=== PATIENT | male | born 1935 | race Caucasian/White ===

== ENCOUNTER 2017-03-19 20:07 | Emergency (ER) | payer MEDICARE ==
[2017-03-19] MEDS ORDERED: IPRATROPIUM/ALBUTEROL 0.5-2.5 MG/3 ML AMPUL NEB ONE ×2 (20:50→21:59)
--- NOTE | 2017-03-19 21:00 | RADIOLOGY REPORT (SQ) ---
EXAM DESCRIPTION: CHEST SINGLE VIEW COMPLETED DATE/TIME: 03/19/2017 8:53 pm REASON FOR STUDY: difficulty breathing COMPARISON: None. EXAM PARAMETERS: NUMBER OF VIEWS: One view. TECHNIQUE: Single frontal radiographic view of the chest acquired. RADIATION DOSE: NA LIMITATIONS: None. FINDINGS: LUNGS AND PLEURA: No opacities, masses or pneumothorax. No pleural effusion. MEDIASTINUM AND HILAR STRUCTURES: No masses. Contour normal. HEART AND VASCULAR STRUCTURES: Heart normal in size. Normal vasculature. BONES: No acute findings. HARDWARE: None in the chest. OTHER: No other significant finding. IMPRESSION: NO ACUTE RADIOGRAPHIC FINDING IN THE CHEST. TECHNICAL DOCUMENTATION: JOB ID: [id number] [employer]- All Rights Reserved
[2017-03-19 21:23] LABS: ABSOLUTE EOSINOPHILS # (AUTO) 0.1 10^3/uL (0.0-0.6); ABSOLUTE LYMPHOCYTES (AUTO) 1.7 10^3/uL (0.5-4.7); ABSOLUTE MONOCYTES (AUTO) 0.2 10^3/uL (0.1-1.4); ABSOLUTE NEUT (AUTO) 3.6 10^3/uL (1.7-8.2); BASOPHILS % (AUTO) 0.5 % (0-2); EOSINOPHILS % (AUTO) 1.5 % (0-6); HEMATOCRIT 37.1 % (37.9-51.0); HGB HCT DIFFERENCE 1.9; LYMPHOCYTES % (AUTO) 30.9 % (13-45); MEAN CORPUSCULAR HEMOGLOBIN 32.6 pg (27.0-33.4); MEAN CORPUSCULAR VOLUME 93 fl (80-97); MONOCYTES % (AUTO) 3.1 % (3-13); RED BLOOD COUNT 3.99 10^6/uL (4.35-5.55); RED CELL DISTRIBUTION WIDTH 14.3 % (11.5-14.0); WHITE BLOOD COUNT 5.7 10^3/uL (4.0-10.5)
[2017-03-19 21:36] LABS: ALANINE AMINOTRANSFERASE 58 U/L (21-72); ALBUMIN 4.3 g/dL (3.5-5.0); ALKALINE PHOSPHATASE 69 U/L (38-126); ANION GAP 15 (5-19); ASPARTATE AMINO TRANSFERASE 54 U/L (17-59); BILIRUBIN,DIRECT 0.4 mg/dL (0.0-0.4); BILIRUBIN,TOTAL 0.6 mg/dL (0.2-1.3); BLOOD UREA NITROGEN 20 mg/dL (7-20); CALCIUM 9.4 mg/dL (8.4-10.2); CARBON DIOXIDE 26 mmol/L (22-30); CHLORIDE 100 mmol/L (98-107); CREATININE RESULT 0.78 mg/dL (0.52-1.25); GLUCOSE 101 mg/dL (75-110); SODIUM 140.9 mmol/L (137-145); TOTAL PROTEIN 7.2 g/dL (6.3-8.2)
--- NOTE | 2017-03-19 22:28 | RADIOLOGY REPORT (SQ) ---
EXAM DESCRIPTION: CTA CHEST COMPLETED DATE/TIME: 03/19/2017 10:11 pm REASON FOR STUDY: sob COMPARISON: None. TECHNIQUE: CT scan of the chest performed using helical scanning technique with dynamic intravenous contrast injection. Images reviewed with lung, soft tissue and bone windows. Reconstructed coronal and sagittal MPR images reviewed. Additional 3 dimensional post-processing performed to develop Maximal Intensity Projection images (NH P). All images stored on PACS. All CT scanners at this facility use dose modulation, iterative reconstruction, and/or weight based d osing when appropriate to reduce radiation dose to as low as reasonably achievable (ALARA). [facility]: Dose Right [facility]: CareDose [facility]: Dose Right [facility]: Teradose 4D [facility]: [employer] CONTRAST TYPE AND DOSE: contrast/concentration: Isovue 370.00 mg/ml; Total Contrast Delivered: 100.0 ml; Total Saline Delivered: 45.0 ml Contrast bolus adequate for pulmonary arteries and aorta. RENAL FUNCTION: Creatinine 0.78. RADIATION DOSE: Up-to-date CT equipment and radiation dose reduction techniques were employed. CTDIv ol: 14.4 mGy. DLP: 497 mGy-cm. . LIMITATIONS: None. FINDINGS: LUNGS AND PLEURA: No masses, infiltrates, pneumothorax. No pleural effusions, calcificati ons. AORTA AND GREAT VESSELS: No aneurysm. Contrast bolus not optimized for the aorta. HEART: No pericardial effusion. No significant coronary artery calcifications. PULMONARY ARTERIES: No emboli visualized in the main pulmonary arteries or the segmental branches. HILAR AND MEDIASTINAL STRUCTURES: No identified masses or abnormal nodes. HARDWARE: None in the chest. UPPER ABDOMEN: Gallstones. Limited exam. THYROID AND OTHER SOFT TISSUES: No masses. No adenopathy. BONES: No acute or significant finding. Degenerative changes in the spine. 3D MIPS: Confirm above findings. OTHER: No other significant finding. IMPRESSION: NORMAL CTA OF THE CHEST. NO PULMONARY EMBOLI. COMMENT: Quality ID # [id number]: Final reports with documentation of one or more dose reduction techniques (e.g., Automated exposure control, adjustment of the mA and/or kV according to patient size, use of iterative reconstruction technique) TECHNICAL DOCUMENTATION: JOB ID: [id number] [employer]- All Rights Reserved
[2017-03-19 22:33] LABS: CREATINE KINASE MB 1.63 ng/mL (<4.55)
[2017-03-19 22:41] LABS: TROPONIN I < 0.012 ng/mL
--- NOTE | 2017-03-19 22:53 | ER Document Report ---
ED General - General Chief Complaint: Shortness Of Breath Stated Complaint: SHORTNESS OF BREATH Time Seen by Provider: 03/19/17 20:34 Mode of Arrival: Ambulatory Information source: Patient, Relative Notes: 81-year-old male no previous history of respiratory issues who has been having cold-like symptoms for the past week presents with complaints of shortness of breath. Patient admits to a nonproductive cough. Patient denies any fevers or chills. He was seen at an urgent care initially diagnosed with bronchitis was given inhaler and azithromycin, was then seen by his primary care physician who stopped azithromycin and start him on Tamiflu but did not actually tested for the flu, patient now presents with complaints of wheezing. Patient denies any previous history of blood clots TRAVEL OUTSIDE OF THE [place] IN LAST 30 DAYS: No - HPI Onset: Last week Onset/Duration: Persistent Quality of pain: No pain Severity: Mild Pain Level: Denies Associated symptoms: Nonproductive cough, Shortness of breath Exacerbated by: Denies Relieved by: Denies Similar symptoms previously: Yes Recently seen / treated by doctor: Yes - Related Data Allergies/Adverse Reactions: No Known Allergies Allergy (Verified 03/19/17 21:23) Past Medical History - Social History Smoking Status: Never Smoker Cigarette use (# per day): No Chew tobacco use (# tins/day): No Smoking Education Provided: No Family History: Reviewed & Not Pertinent Patient has suicidal ideation: No Patient has homicidal ideation: No Renal/ Medical History: Denies: Hx Peritoneal Dialysis Review of Systems - Review of Systems Notes: REVIEW OF SYSTEMS: CONSTITUTIONAL : Denies fever, chills, or sweats. Denies recent illness. EENT: Denies eye, ear, throat, or mouth pain or symptoms. Denies nasal or sinus congestion or discharge. Denies throat, tongue, or mouth swelling or difficulty swallowing. CARDIOVASCULAR: Denies chest pain. Denies palpitations or racing or irregular heart beat. Denies ankle edema. RESPIRATORY: Admits shortness of breath difficulty breathing GASTROINTESTINAL: Denies abdominal pain or distention. Denies nausea, vomiting , or diarrhea. Denies blood in vomitus, stools, or per rectum. Denies black, tarry stools. Denies constipation. GENITOURINARY: Denies difficulty urinating, painful urination, burning, frequency, blood in urine, or discharge. MUSCULOSKELETAL: Denies back or neck pain or stiffness. Denies joint pain or swelling. SKIN: Denies rash, lesions or sores. HEMATOLOGIC : Denies easy bruising or bleeding. LYMPHATIC: Denies swollen, enlarged glands. NEUROLOGICAL: Denies confusion or altered mental status. Denies passing out or loss of consciousness. Denies dizziness or lightheadedness. Denies headache. Denies weakness or paralysis or loss of use of either side. Denies problems with gait or speech. Denies sensory loss, numbness, or tingling. Denies seizures. PSYCHIATRIC: Denies anxiety or stress. Denies depression, suicidal ideation, or homicidal ideation. ALL OTHER SYSTEMS REVIEWED AND NEGATIVE. Dictation was performed using [employer] voice recognition software PHYSICAL EXAMINATION: GENERAL: Well-appearing, well-nourished and in mild respiratory distress HEAD: Atraumatic, normocephalic. EYES: Pupils equal round and reactive to light, extraocular movements intact, sclera anicteric, conjunctiva are normal. ENT: Nares patent, oropharynx clear without exudates. Moist mucous membranes. NECK: Normal range of motion, supple without lymphadenopathy LUNGS: Faint inspiratory expiratory wheezing all throughout mild respiratory distress HEART: Regular rate and rhythm without murmurs ABDOMEN: Soft, nontender, nondistended abdomen. No guarding, no rebound. No masses appreciated. Musculoskeletal: Normal range of motion, no pitting or edema. No cyanosis. NEUROLOGICAL: Cranial nerves grossly intact. Normal speech, normal gait. Normal sensory, motor exams PSYCH: Normal mood, normal affect. SKIN: Warm, Dry, normal turgor, no rashes or lesions noted. Physical Exam - Vital signs Vitals: Temp Pulse Resp BP Pulse Ox 98 F 80 16 166/62 H 97 03/19/17 20:25 03/19/17 20:25 03/19/17 20:25 03/19/17 20:25 03/19/17 20:25 Course - Re-evaluation Re-evalutation: 03/19/17 23:10 Patient was immediately given 3 breathing treatments, notes his symptoms improved significantly and that he is no longer having any difficulty breathing wishes to go home, I had worked the patient up with a chest x-ray lab work which noted no significant abnormality, a CTA was performed which was negative. Influenza was also negative. I did tell the patient that he can stop the Tamiflu but should continue the albuterol inhaler Family is very happy with this plan After performing a Medical Screening Examination, I estimate there is LOW risk for ACUTE CORONARY SYNDROME, PULMONARY EMBOLI, RESPIRATORY FAILURE, SEPSIS OR MENINGITIS, thus I consider the discharge disposition reasonable. I have reevaluated this patient multiple times and no significant life threatening changes are noted. The patient and I have discussed the diagnosis and risks, and we agree with discharging home with close follow-up. We also discussed returning to the Emergency Department immediately if new or worsening symptoms occur. We have discussed the symptoms which are most concerning (e.g., changing or worsening pain, trouble swallowing or breathing, neck stiffness, fever) that necessitate immediate return. - Vital Signs Vital signs: Temp Pulse Resp BP Pulse Ox 98 F 80 20 145/80 H 97 03/19/17 20:25 03/19/17 20:25 03/19/17 22:46 03/19/17 22:46 03/19/17 22:46 - Laboratory Result Diagrams: 03/19/17 20:29 03/19/17 20:29 Laboratory results interpreted by me: 03/19/17 20:29 RBC 3.99 L Hgb 13.0 L Hct 37.1 L RDW 14.3 H - Diagnostic Test Radiology reviewed: Image reviewed, Reports reviewed Discharge - Discharge Clinical Impression: SOB (shortness of breath) Dyspnea Qualifiers: Dyspnea type: unspecified Qualified Code(s): R06.00 - Dyspnea, unspecified URI (upper respiratory infection) Qualifiers: URI type: unspecified URI Qualified Code(s): J06.9 - Acute upper respiratory infection, unspecified Condition: Stable Disposition: HOME, SELF-CARE Additional Instructions: Follow up with your physician tomorrow for further care or return to the ED IMMEDIATELY if symptoms worsen or new concerns occur. If you cannot afford to follow up with your primary care physician a list of low cost clinics have been provided at the end of your discharge papers as well.
[2017-03-19 22:58] VITALS: BP 145/80
--- NOTE | 2017-03-20 09:30 | EKG REPORT ---
SEVERITY:- ABNORMAL ECG - SINUS RHYTHM RIGHT BUNDLE BRANCH BLOCK PROBABLE LVH WITH SECONDARY REPOL ABNRM : Confirmed by: Regis Cosme 20-Mar-2017 09:29:17
== END 2017-03-19 23:11 | disposition home or self-care (01) ==
LOC: ER 20:07
DX: R06.02 Shortness of breath (principal); R06.09 Other forms of dyspnea; J06.9 Acute upper respiratory infection, unspecified
CPT/HCPCS: 93005; 94640 ×2; 99285; 36415; 82553; 82550; 85025; 80053; 84484; 87804; 83880; 71010; 71275; 93010; A9270; J7620

== ENCOUNTER 2017-03-21 19:19 | Emergency (ER) | payer MEDICARE ==
--- NOTE | 2017-03-21 19:42 | ER Document Report ---
ED Medical Screen (RME) - General Chief Complaint: Breathing Difficulty Stated Complaint: DIFFICULTY BREATHING Time Seen by Provider: 03/21/17 19:39 Mode of Arrival: Ambulatory Information source: Patient, Relative TRAVEL OUTSIDE OF THE [place] IN LAST 30 DAYS: No - HPI Patient complains to provider of: sob, dyspnea Onset: Last week - pt with recent "cold" according to family -- saw PCP earlier in the week and said it was "flu." Daughter states his breathing has gotten worse - Related Data Allergies/Adverse Reactions: No Known Allergies Allergy (Verified 03/19/17 21:23) Home Medications: Current Home Medications Unobtainable [Unobtainable] 03/21/17 [History] Past Medical History - Social History Chew tobacco use (# tins/day): No Frequency of alcohol use: None Drug Abuse: None Renal/ Medical History: Denies: Hx Peritoneal Dialysis Physical Exam - Vital signs Vitals: Temp Pulse Resp BP Pulse Ox 97.7 F 79 16 150/79 H 97 03/21/17 19:26 03/21/17 19:26 03/21/17 19:26 03/21/17 19:26 03/21/17 19:26 Course - Vital Signs Vital signs: Temp Pulse Resp BP Pulse Ox 97.7 F 79 16 150/79 H 97 03/21/17 19:26 03/21/17 19:26 03/21/17 19:26 03/21/17 19:26 03/21/17 19:26
[2017-03-21 20:23] LABS: ABSOLUTE EOSINOPHILS # (AUTO) 0.1 10^3/uL (0.0-0.6); ABSOLUTE LYMPHOCYTES (AUTO) 2.2 10^3/uL (0.5-4.7); ABSOLUTE MONOCYTES (AUTO) 0.4 10^3/uL (0.1-1.4); ABSOLUTE NEUT (AUTO) 4.8 10^3/uL (1.7-8.2); BASOPHILS % (AUTO) 0.5 % (0-2); EOSINOPHILS % (AUTO) 1.9 % (0-6); HEMATOCRIT 36.5 % (37.9-51.0); HEMOGLOBIN 12.8 g/dL (13.5-17.0); HGB HCT DIFFERENCE 1.9; LYMPHOCYTES % (AUTO) 28.9 % (13-45); MEAN CORPUSCULAR HEMOGLOBIN 32.2 pg (27.0-33.4); MEAN CORPUSCULAR HGB CONC 35.1 g/dL (32.0-36.0); MEAN CORPUSCULAR VOLUME 92 fl (80-97); MONOCYTES % (AUTO) 5.1 % (3-13); RED BLOOD COUNT 3.98 10^6/uL (4.35-5.55); RED CELL DISTRIBUTION WIDTH 13.9 % (11.5-14.0); SEGMENTED NEUTROPHILS % (AUTO) 63.6 % (42-78); WHITE BLOOD COUNT 7.5 10^3/uL (4.0-10.5)
--- NOTE | 2017-03-21 20:31 | RADIOLOGY REPORT (SQ) ---
EXAM DESCRIPTION: CHEST PA/LAT COMPLETED DATE/TIME: 03/21/2017 8:18 pm REASON FOR STUDY: sob COMPARISON: None. EXAM PARAMETERS: NUMBER OF VIEWS: two views TECHNIQUE: Digital Frontal and Lateral radiographic views of the chest acquired. RADIATION DOSE: NA LIMITATIONS: none FINDINGS: LUNGS AND PLEURA: No opacities, masses or pneumothorax. No pleural effusion. MEDIASTINUM AND HILAR STRUCTURES: No masses or contour abnormalities. HEART AND VASCULAR STRUCTURES: Heart normal size. No evidence for failure. BONES: No acute findings. Degenerative changes in the spine. HARDWARE: None in the chest. OTHER: No other significant finding. IMPRESSION: NO SIGNIFICANT RADIOGRAPHIC FINDING IN THE CHEST. TECHNICAL DOCUMENTATION: JOB ID: [id number] [employer]- All Rights Reserved
[2017-03-21 20:38] LABS: ALANINE AMINOTRANSFERASE 52 U/L (21-72); ALBUMIN 4.3 g/dL (3.5-5.0); ALKALINE PHOSPHATASE 68 U/L (38-126); ANION GAP 13 (5-19); ASPARTATE AMINO TRANSFERASE 49 U/L (17-59); BILIRUBIN,DIRECT 0.3 mg/dL (0.0-0.4); BILIRUBIN,TOTAL 0.6 mg/dL (0.2-1.3); BLOOD UREA NITROGEN 18 mg/dL (7-20); CALCIUM 9.7 mg/dL (8.4-10.2); CARBON DIOXIDE 29 mmol/L (22-30); CHLORIDE 99 mmol/L (98-107); CREATINE KINASE 86 U/L (55-170); CREATININE RESULT 0.84 mg/dL (0.52-1.25); GLUCOSE 108 mg/dL (75-110); POTASSIUM 3.7 mmol/L (3.6-5.0); SODIUM 141.3 mmol/L (137-145); TOTAL PROTEIN 7.3 g/dL (6.3-8.2)
[2017-03-21 20:49] LABS: CREATINE KINASE MB 2.63 ng/mL (<4.55)
[2017-03-21 20:52] LABS: TROPONIN I < 0.012 ng/mL
--- NOTE | 2017-03-21 21:05 | ER Document Report ---
ED Respiratory Problem - General Chief Complaint: Breathing Difficulty Stated Complaint: DIFFICULTY BREATHING Time Seen by Provider: 03/21/17 19:39 Mode of Arrival: Ambulatory TRAVEL OUTSIDE OF THE [place] IN LAST 30 DAYS: No - HPI Patient complains to provider of: Cough, Short of breath Onset: This evening Duration: Gone now Initiating Event: URI Quality of pain: No pain Short of Breath: Mild Chest pain/discomfort: Tightness Cough: Nonproductive Sputum amount: None Associated symptoms: Congestion, Cough, Short of breath Similar symptoms previously: No Recently seen / treated by doctor: Yes Notes: Patient is an 81-year-old male who presents to the emergency room today complaining of upper respiratory symptoms for the past few days, he was seen earlier last week at an urgent care center and diagnosed with "bronchitis with a touch of pneumonia" and was started on antibiotics, then he saw his primary care provider on Thursday and would was diagnosed with the flu and was started on Tamiflu, then he was seen in this department 2 days ago and told to stop both the Tamiflu and the antibiotics as he had no evidence of any active infection or influenza, he has been using inhalers at home as needed for difficulty breathing and reports that he feels much better after these treatments, he denies any sick contacts although his seems to be catching the same cold at this point in time, patient denies any pain anywhere, at time of my initial evaluation he reports feeling much better without any intervention given - Related Data Allergies/Adverse Reactions: No Known Allergies Allergy (Verified 03/19/17 21:23) Past Medical History - General Information source: Patient, Relative - Social History Smoking Status: Former Smoker Chew tobacco use (# tins/day): No Frequency of alcohol use: None Drug Abuse: None Family History: Reviewed & Not Pertinent Patient has suicidal ideation: No Patient has homicidal ideation: No Renal/ Medical History: Denies: Hx Peritoneal Dialysis Review of Systems - Review of Systems Constitutional: No symptoms reported EENT: No symptoms reported Cardiovascular: No symptoms reported Respiratory: See HPI Gastrointestinal: No symptoms reported Genitourinary: No symptoms reported Male Genitourinary: No symptoms reported Musculoskeletal: No symptoms reported Skin: No symptoms reported Hematologic/Lymphatic: No symptoms reported Neurological/Psychological: No symptoms reported -: Yes All other systems reviewed and negative Physical Exam - Vital signs Vitals: Temp Pulse Resp BP Pulse Ox 97.7 F 79 16 150/79 H 97 03/21/17 19:26 03/21/17 19:26 03/21/17 19:26 03/21/17 19:26 03/21/17 19:26 Interpretation: Normal - General General appearance: Appears well, Alert - HEENT Head: Normocephalic, Atraumatic Eyes: Normal Pupils: PERRL - Respiratory Respiratory status: No respiratory distress Chest status: Nontender Breath sounds: Normal Chest palpation: Normal - Cardiovascular Rhythm: Regular Heart sounds: Normal auscultation Murmur: No - Abdominal Inspection: Normal Distension: No distension Bowel sounds: Normal Tenderness: Nontender Organomegaly: No organomegaly - Back Back: Normal, Nontender - Extremities General upper extremity: Normal inspection, Nontender, Normal color, Normal ROM , Normal temperature General lower extremity: Normal inspection, Nontender, Normal color, Normal ROM , Normal temperature, Normal weight bearing. No: Wale's sign - Neurological Neuro grossly intact: Yes Cognition: Normal Orientation: AAOx4 Eddie Coma Scale Eye Opening: Spontaneous Cameron Coma Scale Verbal: Oriented Eddie Coma Scale Motor: Obeys Commands Eddie Coma Scale Total: 15 Speech: Normal Motor strength normal: LUE, RUE, LLE, RLE Sensory: Normal - Psychological Associated symptoms: Normal affect, Normal mood - Skin Skin Temperature: Warm Skin Moisture: Dry Skin Color: Normal Course - Re-evaluation Re-evalutation: 03/21/17 23:47 Lab and imaging findings were discussed at bedside which are unremarkable, symptoms are consistent with likely viral upper respiratory illness, patient was given a prescription for 4 day course of steroids, as well as albuterol inhaler, advised to follow up with his primary care provider or return if symptoms worsen, patient and several family members at bedside acknowledge understanding and agreement with this plan - Vital Signs Vital signs: Temp Pulse Resp BP Pulse Ox 97.6 F 78 16 146/59 H 98 03/21/17 21:12 03/21/17 21:12 03/21/17 19:26 03/21/17 21:12 03/21/17 21:12 - Laboratory Result Diagrams: 03/21/17 19:55 03/21/17 19:55 Laboratory results interpreted by me: 03/21/17 19:55 RBC 3.98 L Hgb 12.8 L Hct 36.5 L - Diagnostic Test Radiology reviewed: Image reviewed, Reports reviewed Discharge - Discharge Clinical Impression: URI (upper respiratory infection) Qualifiers: URI type: unspecified viral URI Qualified Code(s): J06.9 - Acute upper respiratory infection, unspecified Condition: Stable Disposition: HOME, SELF-CARE Instructions: Upper Respiratory Illness ([facility]), Viral Syndrome ([facility]) Additional Instructions: Follow up with your primary care provider in one to 2 days. Return to the emergency room immediately if symptoms worsen or any additional concerns. Prescriptions: Albuterol Sulfate [Proair HFA Inhalation Aerosol 8.5 gm MDI] 1 puff IH Q4 PRN # 1 mdi PRN Reason: Prednisone 60 mg PO DAILY #12 tablet
[2017-03-21] MEDS ORDERED: PREDNISONE 20 MG TABLET PO ONE (21:06)
[2017-03-21 21:13] VITALS: BP 146/59
[2017-03-21] MEDS ORDERED: ALBUTEROL SULFATE HFA (90 MCG/PUFF) 8 GM MDI (1 MDI/ER DISP) IH SCH (22:00)
--- NOTE | 2017-03-22 09:16 | EKG REPORT ---
SEVERITY:- ABNORMAL ECG - SINUS RHYTHM RIGHT BUNDLE BRANCH BLOCK LVH WITH IVCD AND SECONDARY REPOL ABNRM : Confirmed by: Regis Cosme 22-Mar-2017 09:15:53
== END 2017-03-21 21:15 | disposition home or self-care (01) ==
LOC: ER 19:19
DX: J06.9 Acute upper respiratory infection, unspecified (principal); R06.02 Shortness of breath; R06.00 Dyspnea, unspecified; Z87.891 Personal history of nicotine dependence
CPT/HCPCS: 93005; 99285; 36415; 82553; 82550; 85025; 80053; 84484; 87804; 71020; 93010; A9270; J3490; J7512

== ENCOUNTER 2017-04-22 08:28 | Observation (INO) | payer MEDICARE, BC ==
[2017-04-22] MEDS ORDERED: ASPIRIN 81 MG TABLET, CHEWABLE PO ONE (08:52)
[2017-04-22 09:58] LABS: ABSOLUTE LYMPHOCYTES (AUTO) 0.8 10^3/uL (0.5-4.7); ABSOLUTE MONOCYTES (AUTO) 0.7 10^3/uL (0.1-1.4); ABSOLUTE NEUT (AUTO) 9.5 10^3/uL (1.7-8.2); BASOPHILS % (AUTO) 0.2 % (0-2); EOSINOPHILS % (AUTO) 0.1 % (0-6); HEMATOCRIT 39.8 % (37.9-51.0); HGB HCT DIFFERENCE 2.2; LYMPHOCYTES % (AUTO) 7.5 % (13-45); MEAN CORPUSCULAR HEMOGLOBIN 32.9 pg (27.0-33.4); MEAN CORPUSCULAR HGB CONC 35.1 g/dL (32.0-36.0); MEAN CORPUSCULAR VOLUME 94 fl (80-97); MONOCYTES % (AUTO) 6.6 % (3-13); RED BLOOD COUNT 4.24 10^6/uL (4.35-5.55); RED CELL DISTRIBUTION WIDTH 14.3 % (11.5-14.0); SEGMENTED NEUTROPHILS % (AUTO) 85.6 % (42-78)
[2017-04-22] MEDS ORDERED: NITROGLYCERIN 0.4 MG/TAB 25 TAB/BOTTLE SL PRN (10:06)
--- NOTE | 2017-04-22 10:06 | ER Document Report ---
ED General - General Chief Complaint: Chest Pain Stated Complaint: CHEST PAIN Time Seen by Provider: 04/22/17 08:52 Mode of Arrival: Ambulatory Information source: Patient, Relative Cannot obtain history due to: Dementia Notes: 81-year-old male history of dementia who has had on-and-off chest pains presents with complaints of midsternal chest pressure with pain down the arm. Patient denies any fevers or chills denies any nausea vomiting or diarrhea. Patient has not had any previous cardiac history but has had intermittent chest pains in the past. Patient does not have any recent stress test or heart catheterization TRAVEL OUTSIDE OF THE [place] IN LAST 30 DAYS: No - HPI Onset: Yesterday Onset/Duration: Sudden Quality of pain: Pressure Severity: Mild Pain Level: 1 Associated symptoms: Chest pain Exacerbated by: Denies Relieved by: Denies Similar symptoms previously: Yes Recently seen / treated by doctor: No - Related Data Allergies/Adverse Reactions: No Known Allergies Allergy (Verified 04/22/17 08:31) Past Medical History - Social History Smoking Status: Former Smoker Cigarette use (# per day): No Chew tobacco use (# tins/day): No Smoking Education Provided: No Frequency of alcohol use: None Drug Abuse: None Family History: Reviewed & Not Pertinent Patient has suicidal ideation: No Patient has homicidal ideation: No Renal/ Medical History: Denies: Hx Peritoneal Dialysis Musculoskeltal Medical History: Reports Hx Arthritis Review of Systems - Review of Systems Notes: REVIEW OF SYSTEMS: CONSTITUTIONAL : Denies fever, chills, or sweats. Denies recent illness. EENT: Denies eye, ear, throat, or mouth pain or symptoms. Denies nasal or sinus congestion or discharge. Denies throat, tongue, or mouth swelling or difficulty swallowing. CARDIOVASCULAR: Admits to chest pain RESPIRATORY: Denies cough, cold, or chest congestion. Denies shortness of breath, difficulty breathing, or wheezing. GASTROINTESTINAL: Denies abdominal pain or distention. Denies nausea, vomiting , or diarrhea. Denies blood in vomitus, stools, or per rectum. Denies black, tarry stools. Denies constipation. GENITOURINARY: Denies difficulty urinating, painful urination, burning, frequency, blood in urine, or discharge. MUSCULOSKELETAL: Denies back or neck pain or stiffness. Denies joint pain or swelling. SKIN: Denies rash, lesions or sores. HEMATOLOGIC : Denies easy bruising or bleeding. LYMPHATIC: Denies swollen, enlarged glands. NEUROLOGICAL: Denies confusion or altered mental status. Denies passing out or loss of consciousness. Denies dizziness or lightheadedness. Denies headache. Denies weakness or paralysis or loss of use of either side. Denies problems with gait or speech. Denies sensory loss, numbness, or tingling. Denies seizures. PSYCHIATRIC: Denies anxiety or stress. Denies depression, suicidal ideation, or homicidal ideation. ALL OTHER SYSTEMS REVIEWED AND NEGATIVE. Dictation was performed using [employer] voice recognition software PHYSICAL EXAMINATION: GENERAL: Well-appearing, well-nourished and in no acute distress. HEAD: Atraumatic, normocephalic. EYES: Pupils equal round and reactive to light, extraocular movements intact, sclera anicteric, conjunctiva are normal. ENT: Nares patent, oropharynx clear without exudates. Moist mucous membranes. NECK: Normal range of motion, supple without lymphadenopathy LUNGS: Breath sounds clear to auscultation bilaterally and equal. No wheezes rales or rhonchi. HEART: Regular rate and rhythm without murmurs ABDOMEN: Soft, nontender, nondistended abdomen. No guarding, no rebound. No masses appreciated. Musculoskeletal: Normal range of motion, no pitting or edema. No cyanosis. NEUROLOGICAL: Cranial nerves grossly intact. Normal speech, normal gait. Normal sensory, motor exams PSYCH: Normal mood, normal affect. SKIN: Warm, Dry, normal turgor, no rashes or lesions noted. Physical Exam - Vital signs Vitals: Temp Pulse Resp BP Pulse Ox 97.4 F 68 18 189/67 H 98 04/22/17 08:44 04/22/17 08:44 04/22/17 08:44 04/22/17 08:44 04/22/17 08:44 Course - Re-evaluation Re-evalutation: 04/22/17 10:12 Cardiac workup pending 04/22/17 10:31 Cardiac enzymes were negative, EKG noted no significant abnormality however the patient is hypertensive which was new for him, nitro ordered patient will be observed by hospitalist service - Vital Signs Vital signs: Temp Pulse Resp BP Pulse Ox 97.4 F 68 19 197/75 H 100 04/22/17 08:44 04/22/17 08:44 04/22/17 09:08 04/22/17 09:08 04/22/17 09:08 - Laboratory Result Diagrams: 04/22/17 09:36 04/22/17 09:36 Laboratory results interpreted by me: 04/22/17 04/22/17 09:36 09:36 WBC 11.0 H RBC 4.24 L RDW 14.3 H Seg Neutrophils % 85.6 H Lymphocytes % 7.5 L Absolute Neutrophils 9.5 H Chloride 95 L Glucose 206 H Creatine Kinase 43 L - Diagnostic Test Radiology reviewed: Image reviewed, Reports reviewed - EKG Interpretation by Me EKG shows normal: Sinus rhythm, [place], Intervals, QRS Complexes Discharge - Discharge Clinical Impression: Chest pain Qualifiers: Chest pain type: unspecified Qualified Code(s): R07.9 - Chest pain, unspecified HTN (hypertension) Qualifiers: Hypertension type: essential hypertension Qualified Code(s): I10 - Essential ( primary) hypertension Condition: Stable Disposition: ADMITTED OBSERVATION Admitting Provider: Hospitalist Unit Admitted: Telemetry
[2017-04-22 10:16] LABS: ALANINE AMINOTRANSFERASE 28 U/L (21-72); ALBUMIN 4.5 g/dL (3.5-5.0); ALKALINE PHOSPHATASE 81 U/L (38-126); ANION GAP 14 (5-19); ASPARTATE AMINO TRANSFERASE 31 U/L (17-59); BILIRUBIN,DIRECT 0.3 mg/dL (0.0-0.4); BILIRUBIN,TOTAL 1.3 mg/dL (0.2-1.3); BLOOD UREA NITROGEN 16 mg/dL (7-20); CALCIUM 9.6 mg/dL (8.4-10.2); CARBON DIOXIDE 29 mmol/L (22-30); CHLORIDE 95 mmol/L (98-107); CREATINE KINASE 43 U/L (55-170); GLUCOSE 206 mg/dL (75-110); POTASSIUM 4.1 mmol/L (3.6-5.0); SODIUM 137.7 mmol/L (137-145); TOTAL PROTEIN 7.8 g/dL (6.3-8.2)
[2017-04-22 10:24] LABS: CREATINE KINASE MB 1.16 ng/mL (<4.55)
[2017-04-22 10:29] LABS: TROPONIN I < 0.012 ng/mL
--- NOTE | 2017-04-22 10:38 | RADIOLOGY REPORT (SQ) ---
EXAM DESCRIPTION: CHEST SINGLE VIEW COMPLETED DATE/TIME: 04/22/2017 9:43 am REASON FOR STUDY: chest pain COMPARISON: Two-view chest 03/21/2017, 03/19/2017 CT angio chest 03/19/2017 EXAM PARAMETERS: NUMBER OF VIEWS: One view. TECHNIQUE: Single frontal radiographic view of the chest acquired. RADIATION DOSE: NA LIMITATIONS: None. FINDINGS: LUNGS AND PLEURA: No opacities, masses or pneumothorax. No pleural effusion. MEDIASTINUM AND HILAR STRUCTURES: No masses. Contour normal. HEART AND VASCULAR STRUCTURES: Heart normal in size. Normal vasculature. BONES: Old healed left posterior rib fractures. HARDWARE: None in the chest. OTHER: No other significant finding. IMPRESSION: NO ACUTE RADIOGRAPHIC FINDING IN THE CHEST. TECHNICAL DOCUMENTATION: JOB ID: [id number] [employer]- All Rights Reserved
[2017-04-22] MEDS ORDERED: ONDANSETRON HCL INJ/PF 4 MG/2 ML SDV IV PRN (10:51)
[2017-04-22] MEDS ORDERED: ACETAMINOPHEN 325 MG TABLET PO PRN (10:51)
[2017-04-22] MEDS ORDERED: ONDANSETRON 4 MG TAB.RAPDIS PO PRN (10:51)
[2017-04-22] MEDS ORDERED: DEXTROSE 40% GEL 15 GM TUBE PO PRN ×2 (11:33)
[2017-04-22] MEDS ORDERED: GLUCAGON,HUMAN RECOMB 1 MG INJ IM PRN (11:33)
[2017-04-22] MEDS ORDERED: DEXTROSE 50%-WATER 25 GM/50 ML DISP.SYRIN IV PRN ×2 (11:33)
[2017-04-22] MEDS ORDERED: INSULIN LISPRO 100 UNIT/ML 3 ML VIAL SUBCUT PRN (11:33)
--- NOTE | 2017-04-22 11:38 | PDOC H&P ---
History of Present Illness Admission Date/PCP: 04/22/17 10:50 Patient complains of: Chest pain. History of Present Illness: LAY BEY is a 81 year old male with no history of coronary artery disease who presents with chest pain. He has a history of poorly mild traumatic and had been on prednisone until 2 months ago. The patient was seen by his daughter this morning around 7:30 AM and the patient complained of chest pain and asked to go to the doctor. When asked to be more specific he could not be other than he had chest pain in the substernal area. He denies any nausea vomiting. Denies any diaphoresis or palpitations. He denies any radiation. Patient was not doing any particular activity when started. He denies any trauma. He denies any prolonged immobility. Denies any orthopnea or PND. Denies any lower extremity edema. Past Medical History Pulmonary Medical History: Reports: None EENT Medical History: Reports: None Endocrine Medical History: Reports: Diabetes Mellitus Type 2 Renal/ Medical History: Reports: None Malignancy Medical History: Reports: None GI Medical History: Reports: None Musculoskeltal Medical History: Reports: Arthritis, Other - Polymyalgia rheumatica Skin Medical History: Reports: None Psychiatric Medical History: Reports: Dementia Hematology: Reports: None Infectious Medical History: Reports: None Social History Information Source: Patient Lives with: Family Smoking Status: Former Smoker Frequency of Alcohol Use: None Hx Recreational Drug Use: No Drugs: None Hx Prescription Drug Abuse: No - Advance Directive Resuscitation Status: Full Code Family History Family History: Father in his 70s from lung cancer. Mother in her 80s from dementia. Parental Family History Reviewed: Yes Children Family History Reviewed: No Sibling(s) Family History Reviewed.: No Medication/Allergy Allergies/Adverse Reactions: No Known Allergies Allergy (Verified 04/22/17 08:31) Review of Systems Constitutional: ABSENT: chills, fever(s), headache(s), weight gain, weight loss Eyes: ABSENT: visual disturbances Ears: ABSENT: hearing changes Cardiovascular: PRESENT: chest pain. ABSENT: dyspnea on exertion, edema, orthropnea, palpitations Respiratory: ABSENT: cough, hemoptysis Gastrointestinal: ABSENT: abdominal pain, constipation, diarrhea, hematemesis, hematochezia, nausea, vomiting Genitourinary: ABSENT: dysuria, hematuria Musculoskeletal: PRESENT: other - History of myalgias from polymyalgia rheumatica. Integumentary: ABSENT: rash, wounds Neurological: PRESENT: memory loss Psychiatric: ABSENT: anxiety, depression Endocrine: ABSENT: cold intolerance, heat intolerance, polydipsia, polyuria Hematologic/Lymphatic: ABSENT: easy bleeding, easy bruising Physical Exam Vital Signs: Temp Pulse Resp BP Pulse Ox 97.4 F 68 19 197/75 H 100 04/22/17 08:44 04/22/17 08:44 04/22/17 09:08 04/22/17 09:08 04/22/17 09:08 General appearance: PRESENT: no acute distress, well-developed, well-nourished Eye exam: PRESENT: conjunctiva pink, EOMI, PERRLA. ABSENT: scleral icterus Ear exam: PRESENT: normal external ear exam Mouth exam: PRESENT: moist, tongue midline Neck exam: ABSENT: carotid bruit, JVD, lymphadenopathy, thyromegaly Respiratory exam: PRESENT: clear to auscultation isabell. ABSENT: rales, rhonchi, wheezes Cardiovascular exam: PRESENT: RRR. ABSENT: diastolic murmur, rubs, systolic murmur Vascular exam: PRESENT: normal capillary refill GI/Abdominal exam: PRESENT: normal bowel sounds, soft. ABSENT: distended, guarding, mass, organolmegaly, rebound, tenderness Rectal exam: PRESENT: deferred Extremities exam: ABSENT: calf tenderness, clubbing, pedal edema Neurological exam: PRESENT: alert, awake, oriented to person, oriented to place , oriented to situation, CN II-XII grossly intact. ABSENT: oriented to time, motor sensory deficit Psychiatric exam: PRESENT: appropriate affect Skin exam: PRESENT: dry, intact, warm. ABSENT: cyanosis, rash Results Impressions: Chest X-Ray 04/22/17 08:52 IMPRESSION: NO ACUTE RADIOGRAPHIC FINDING IN THE CHEST. Assessment & Plan - Diagnosis (1) Chest pain Qualifiers: Chest pain type: unspecified Qualified Code(s): R07.9 - Chest pain, unspecified Is this a current diagnosis for this admission?: Yes Plan: The patient's chest pain most likely is not cardiac in origin. However we will serial cardiac enzymes and do a Cardiolite stress test if those are normal. Most likely his chest pain is related to his polymyalgia rheumatica. If his stress test is normal tomorrow we will start him on prednisone. (2) Polymyalgia rheumatica Is this a current diagnosis for this admission?: Yes Plan: The patient has been off of prednisone for several months. He has been taking methotrexate however. If his stress test is normal we will assume that is the cause for his chest pain and start him on prednisone. (3) Diabetes mellitus Is this a current diagnosis for this admission?: Yes Plan: The patient's daughter states he has never actually been diagnosed with diabetes but was put on metformin because of elevated blood sugars. Will check fingerstick blood sugars and cover with sliding scale insulin. (4) HTN (hypertension) Qualifiers: Hypertension type: essential hypertension Qualified Code(s): I10 - Essential (primary) hypertension Is this a current diagnosis for this admission?: Yes (5) Dementia Is this a current diagnosis for this admission?: Yes Plan: Patient has mild to moderate dementia. - Plan Summary Plan Summary: Patient will be admitted as an observation.
[2017-04-22 12:04] LABS: CREATINE KINASE MB 0.95 ng/mL (<4.55)
[2017-04-22 12:09] LABS: TROPONIN I < 0.012 ng/mL
--- NOTE | 2017-04-22 13:12 | EKG REPORT ---
SEVERITY:- ABNORMAL ECG - SINUS RHYTHM RIGHT BUNDLE BRANCH BLOCK LEFT VENTRICULAR HYPERTROPHY : Confirmed by: Kayden Bertrand MD 22-Apr-2017 13:11:16
[2017-04-22] MEDS ORDERED: OXYCODONE HCL IR 5 MG TABLET PO PRN (15:58)
[2017-04-22 17:42] LABS: CREATINE KINASE MB 0.83 ng/mL (<4.55)
[2017-04-22 17:46] LABS: TROPONIN I < 0.012 ng/mL
[2017-04-22] MEDS ORDERED: KETOROLAC TROMETHAMINE INJ/PF 30 MG/1 ML SDV IV ONE (18:30)
[2017-04-22] MEDS: FAMOTIDINE 20 MG TABLET PO SCH (22:01)
[2017-04-22 23:48] LABS: CREATINE KINASE MB 0.71 ng/mL (<4.55); TROPONIN I 0.014 ng/mL
[2017-04-23] MEDS ORDERED: ASPIRIN 325 MG TABLET, ENT COATED PO SCH (10:00)
[2017-04-23] MEDS ORDERED: REGADENOSON INJ 0.4 MG/5 ML DISP.SYRIN IV ONE (13:29)
[2017-04-23] MEDS: FAMOTIDINE 20 MG TABLET PO SCH (13:46)
--- NOTE | 2017-04-23 13:57 | RADIOLOGY REPORT (SQ) ---
EXAM DESCRIPTION: U/S ABDOMEN LIMITED W/O DOP COMPLETED DATE/TIME: 04/23/2017 1:36 pm REASON FOR STUDY: abd pain R07.89 OTHER CHEST PAIN R10.84 GENERALIZED ABDOMINAL PAIN COMPARISON: CT angio chest 03/19/2017 TECHNIQUE: Dynamic and static grayscale images acquired of the abdomen and recorded on PACS. Additio nal selected color Doppler and spectral images recorded. LIMITATIONS: None. FINDINGS: PANCREAS: Midline pancreas unremarkable LIVER: No masses. Echotexture normal. LIVER VASCULATURE: Normal directional flow of the main portal vein and hepatic veins. GALLBLADDER: Multiple shadowing stones. No gallbladder wall thickening or pericholecystic fluid. ULTRASOUND-DETECTED CHAO'S SIGN: Negative. INTRAHEPATIC DUCTS AND COMMON DUCT: CBD and intrahepatic ducts normal caliber. No filling defects. INFERIOR VENA CAVA: Normal flow. AORTA: No aneurysm. RIGHT KIDNEY: Normal size. Normal echogenicity. No solid or suspicious masses. No hydronephrosis. No calcifications. PERITONEAL AND RIGHT PLEURAL SPACE: No ascites or effusions. OTHER: No other significant findings. IMPRESSION: Stones in the gallbladder without gallbladder wall thickening or pericholecystic fluid. TECHNICAL DOCUMENTATION: JOB ID: [id number] [employer]- All Rights Reserved
--- NOTE | 2017-04-23 15:38 | PDOC DISCHARGE SUMMARY ---
General - Admit/Disc Date/PCP Admission Date/Primary Care Provider: 04/22/17 10:50 Discharge Date: 04/23/17 - Discharge Diagnosis (1) Chest pain Is this a current diagnosis for this admission?: Yes Summary: Cardiolite stress test with no reversible ischemia. Most likely secondary to polymyalgia rheumatica. (2) Polymyalgia rheumatica Is this a current diagnosis for this admission?: Yes Summary: Will start on prednisone 10 mg daily (3) Diabetes mellitus Is this a current diagnosis for this admission?: Yes (4) HTN (hypertension) Is this a current diagnosis for this admission?: Yes (5) Dementia Is this a current diagnosis for this admission?: Yes (6) Gallstones Is this a current diagnosis for this admission?: Yes Summary: Patient had normal liver function test. No evidence for obstruction or pericolic fluid. The gallstones are most likely incidental findings. - Additional Information Resuscitation Status: Full Code Discharge Diet: Diabetic Discharge Activity: Activity As Tolerated Prescriptions: Prednisone 10 mg PO DAILY #30 tablet Home Medications: Cholecalciferol (Vitamin D3) [Vitamin D3] 50,000 mg PO TU 04/22/17 Folic Acid [Folvite 1 mg Tablet] 1 mg PO QAM 04/22/17 Metformin HCl [Glucophage XR 500 mg Tablet] 500 mg PO QAM 04/22/17 Methotrexate Sodium [Methotrexate] 20 mg PO TU 04/22/17 Prednisone 10 mg PO DAILY #30 tablet 04/23/17 History of Present Illness History of Present Illness: LAY BEY is a 81 year old male with no history of coronary artery disease who presents with chest pain. He has a history of poorly mild traumatic and had been on prednisone until 2 months ago. The patient was seen by his daughter this morning around 7:30 AM and the patient complained of chest pain and asked to go to the doctor. When asked to be more specific he could not be other than he had chest pain in the substernal area. He denies any nausea vomiting. Denies any diaphoresis or palpitations. He denies any radiation. Patient was not doing any particular activity when started. He denies any trauma. He denies any prolonged immobility. Denies any orthopnea or PND. Denies any lower extremity edema. Hospital Course Hospital Course: 81-year-old gentleman who has a history of polymyalgia rheumatica who presented with chest pain. The patient's chest pain was in the right chest wall area. The patient was monitored on telemetry and had no cardiac arrhythmias. Patient then underwent a Cardiolite stress test which was negative for any reversible ischemia. The patient's family was concerned about the possibility of gallstones although liver enzymes were normal. Gallstones were present on ultrasound however he had a negative Dumont sign and there was no evidence for dilatation or pericolic fluid. I suspect that the gallstones are an incidental finding. The patient does have a history of poly-myalgia rheumatica and has not been on prednisone for several months. This is the most likely cause for his pain and he is restarted on prednisone 10 mg daily and will follow up with his primary care in the next 2 weeks. Patient's other medical problems were stable during this hospitalization. Physical Exam Vital Signs: Temp Pulse Resp BP Pulse Ox 98.4 F 106 H 18 166/55 H 99 04/23/17 12:00 04/23/17 12:00 04/23/17 12:00 04/23/17 12:00 04/23/17 12:00 Intake & Output 04/22/17 04/23/17 04/24/17 06:59 06:59 06:59 Intake Total 651 Output Total 0 Balance 651 Weight 68.8 kg General appearance: PRESENT: no acute distress Eye exam: PRESENT: conjunctiva pink. ABSENT: scleral icterus Mouth exam: PRESENT: moist, tongue midline Neck exam: ABSENT: JVD Respiratory exam: PRESENT: clear to auscultation isabell. ABSENT: rales, rhonchi, wheezes Cardiovascular exam: PRESENT: RRR. ABSENT: diastolic murmur, rubs, systolic murmur GI/Abdominal exam: PRESENT: normal bowel sounds, soft. ABSENT: distended, guarding, mass, organolmegaly, rebound, tenderness Extremities exam: ABSENT: calf tenderness, clubbing, pedal edema Neurological exam: PRESENT: alert, awake, oriented to person, oriented to place , oriented to time, oriented to situation, CN II-XII grossly intact. ABSENT: motor sensory deficit Psychiatric exam: PRESENT: appropriate affect Skin exam: PRESENT: dry, intact, warm. ABSENT: cyanosis, rash Results Laboratory Results: 04/22/17 04/22/17 04/22/17 11:18 11:18 12:47 Creatine Kinase 35 L CK-MB (CK-2) 0.95 Troponin I < 0.012 0.013 04/22/17 04/22/17 04/22/17 17:00 17:00 23:05 Creatine Kinase 32 L 25 L CK-MB (CK-2) 0.83 Troponin I < 0.012 04/22/17 23:05 Creatine Kinase CK-MB (CK-2) 0.71 Troponin I 0.014 Impressions: Chest X-Ray 04/22/17 08:52 IMPRESSION: NO ACUTE RADIOGRAPHIC FINDING IN THE CHEST. Abdomen Ultrasound 04/23/17 00:00 IMPRESSION: Stones in the gallbladder without gallbladder wall thickening or pericholecystic fluid. Qualifiers PATEINT BEING DISCHARGED WITH ANY OF THE FOLLOWING DIAGNOSIS?: No Plan Discharge Plan: Patient is discharged home. Will follow with primary care in 2 weeks. Time Spent: Less than 30 Minutes
[2017-04-23 16:07] VITALS: BP 154/59
--- NOTE | 2017-04-25 12:17 | DRAGON STRESS TEST REPORT ---
Intravenous Lexiscan Cardiolite stress test using single photon emmision computerized tomography. Date of procedure: 04/23/2017. Ordering Provider: Dr. Greene. Patient's status: In Patient. Indication: Chest pain. Coronary risk factors Age, and diabetes. Resting EKG: Sinus Rhythm. Right bundle branch block pattern Stress EKG: No changes of ischemia. The patient had no chest pain or discomfort, and there were no arrhythmias seen. Reason for termination: Protocol. Conclusions: Normal EKG and hemodynamic response to IV Lexiscan. Nuclear data: At rest the patient was given 12.89 millicuries of technetium 99m sestamibi injected intravenously. As per protocol rest non gated SPECT images were obtained. Subsequently the patient was given intravenous Lexiscan at a dose of 0.4 mg in 5 mL intravenously, followed by flush with normal saline. Subsequently the stress dose of 33.5 millicuries of technetium 99m sestamibi was injected intravenously. As per protocol stress gated images were obtained. Nuclear interpretation: Review of images showed that there was liver and bowel contamination artifact of the inferior wall. In spite of this all segments of the myocardium had normal perfusion at rest, and normal perfusion post stress with IV Lexiscan. All segments of the myocardium had normal motion, contraction, and thickening by gated study. T. I D. ratio was normal at 1.02. Computer read rest, and stress left ventricular ejection fraction were 53 %, and 54 %, respectively. Visually both the stress and rest ejection fractions were normal, and greater than 55%. Conclusion: 1. There is no scintigraphic evidence of Lexiscan induced myocardial ischemia. 2. There is no scintigraphic evidence of myocardial infarction/scar. Recommendations: Aggressive risk factor modification, and treating the underlying co- morbidities. [facility]
== END 2017-04-23 16:30 | disposition home or self-care (01) ==
LOC: ER 08:28 → EH 10:50 → 4S 12:21
PROVIDERS: ADMIT Internal Medicine; ATTEND Internal Medicine
DX: R07.2 Precordial pain (principal); M35.3 Polymyalgia rheumatica; E11.9 Type 2 diabetes mellitus without complications; I10 Essential (primary) hypertension; F03.90 Unspecified dementia, unspecified severity, without behavioral disturbance, psychotic disturbance, mood disturbance, and anxiety; K80.80 Other cholelithiasis without obstruction; Z87.891 Personal history of nicotine dependence; Z80.1 Family history of malignant neoplasm of trachea, bronchus and lung
CPT/HCPCS: 93005; 99285; 36415; 82553; 82962 ×2; 82550; 85025; 80053; 84484; 93017; 71010; 76705; 78452; 93010; A9500; J2785; A9270 ×5; J1885; J3490 ×2; Q9969

== ENCOUNTER 2019-07-09 13:24 | Emergency (ER) | payer MEDICARE, BC ==
[2019-07-09] MEDS ORDERED: NORMAL SALINE 1000 ML 1,000 ML IV ONE (13:42)
--- NOTE | 2019-07-09 13:42 | ER Document Report ---
ED Medical Screen (RME) - General Chief Complaint: High Blood Sugar Stated Complaint: BLOOD SUGAR ISSUE Time Seen by Provider: 07/09/19 13:38 Mode of Arrival: Ambulatory Information source: Relative Notes: 84-year-old male presented to ED for elevated blood sugar. He does have type 2 diabetes. He and his are both dementia. The daughter is here with him she states that her and her 2 sisters live very close and check on them frequently. She states that when she got to his house this morning his blood sugar was 290 gave him his medication and then took his sugar was 306 then she took him outside walked him around a bit and then his sugar was 333. She states that he has been sick and the doctor said his sugars were going to run a little high but this is higher than his normal. Patient has dementia and is acting his normal self. Daughter states that he was put on steroids for illness but did not tell the daughter that steroids could make the sugar go higher and she has not changed any medications during the steroids. She states he was on 5 days of steroids. I have greeted and performed a rapid initial assessment of this patient. A comprehensive ED assessment and evaluation of the patient, analysis of test results and completion of medical decision making process will be conducted by an additional ED providers. TRAVEL OUTSIDE OF THE [place] IN LAST 30 DAYS: No - Related Data Allergies/Adverse Reactions: No Known Allergies Allergy (Verified 07/09/19 13:36) Past Medical History Endocrine Medical History: Reports: Hx Diabetes Mellitus Type 2 Renal/ Medical History: Denies: Hx Peritoneal Dialysis Musculoskeltal Medical History: Reports Hx Arthritis Psychiatric Medical History: Reports: Hx Dementia Physical Exam - Vital signs Vitals: Temp Pulse Resp BP Pulse Ox 97.5 F 75 16 151/72 H 100 07/09/19 13:36 07/09/19 13:36 07/09/19 13:36 07/09/19 13:36 07/09/19 13:36 Course - Vital Signs Vital signs: Temp Pulse Resp BP Pulse Ox 97.5 F 75 16 151/72 H 100 07/09/19 13:36 07/09/19 13:36 07/09/19 13:36 07/09/19 13:36 07/09/19 13:36 - Laboratory Laboratory results interpreted by me: 07/09/19 13:44 POC Glucose 229 H
[2019-07-09 14:25] LABS: VENOUS BLOOD HCO3 27.5 mmol/L (20-32); VENOUS BLOOD PCO2 50.9 mmHg (35-63); VENOUS BLOOD PH 7.35 (7.30-7.42)
[2019-07-09 14:37] LABS: ALBUMIN 4.1 g/dL (3.5-5.0); ALKALINE PHOSPHATASE 69 U/L (38-126); ANION GAP 9 (5-19); ASPARTATE AMINO TRANSFERASE 30 U/L (17-59); BILIRUBIN,TOTAL 0.4 mg/dL (0.2-1.3); BLOOD UREA NITROGEN 25 mg/dL (7-20); CALCIUM 9.3 mg/dL (8.4-10.2); CARBON DIOXIDE 30 mmol/L (22-30); CHLORIDE 97 mmol/L (98-107); GLUCOSE 221 mg/dL (75-110); POTASSIUM 3.6 mmol/L (3.6-5.0); TOTAL PROTEIN 7.3 g/dL (6.3-8.2)
[2019-07-09 14:48] LABS: HEMOGLOBIN 14.2 g/dL (13.5-17.0); MEAN CORPUSCULAR HEMOGLOBIN 32.4 pg (27.0-33.4); MEAN CORPUSCULAR HGB CONC 35.5 g/dL (32.0-36.0); MEAN CORPUSCULAR VOLUME 91 fl (80-97); PLATELET COUNT 221 10^3/uL (150-450); RED BLOOD COUNT 4.39 10^6/uL (4.35-5.55); RED CELL DISTRIBUTION WIDTH 14.2 % (11.5-14.0); WHITE BLOOD COUNT 8.9 10^3/uL (4.0-10.5)
--- NOTE | 2019-07-09 15:04 | ER Document Report ---
ED Blood Sugar Problem - General Chief Complaint: High Blood Sugar Stated Complaint: BLOOD SUGAR ISSUE Time Seen by Provider: 07/09/19 13:38 Primary Care Provider: VIRGINIA DIGGS MD [Primary Care Provider] - Follow up as needed Mode of Arrival: Ambulatory Notes: Patient is an 84-year-old male presenting to the emergency department with concern for elevated blood glucose levels. Patient's daughter accompanies him and states that his blood glucose level at home was reading nearly 300. She does report he is a [id number] diabetic. She states he lives alone with his who also has dementia. She denies any other symptoms. TRAVEL OUTSIDE OF THE [place] IN LAST 30 DAYS: No - Related Data Allergies/Adverse Reactions: No Known Allergies Allergy (Verified 07/09/19 13:36) Past Medical History - General Information source: Relative - Social History Smoking Status: Former Smoker Chew tobacco use (# tins/day): No Frequency of alcohol use: None Drug Abuse: None Family History: Reviewed & Not Pertinent Patient has suicidal ideation: No Patient has homicidal ideation: No Endocrine Medical History: Reports: Hx Diabetes Mellitus Type 2 Renal/ Medical History: Denies: Hx Peritoneal Dialysis Musculoskeletal Medical History: Reports Hx Arthritis Psychiatric Medical History: Reports: Hx Dementia Review of Systems - Review of Systems Constitutional: No symptoms reported EENT: No symptoms reported Cardiovascular: No symptoms reported Respiratory: No symptoms reported Gastrointestinal: No symptoms reported Genitourinary: No symptoms reported Male Genitourinary: No symptoms reported Musculoskeletal: No symptoms reported Skin: No symptoms reported Hematologic/Lymphatic: No symptoms reported Neurological/Psychological: No symptoms reported Physical Exam - Vital signs Vitals: Temp Pulse Resp BP Pulse Ox 97.5 F 75 16 151/72 H 100 07/09/19 13:36 07/09/19 13:36 07/09/19 13:36 07/09/19 13:36 07/09/19 13:36 - Notes Notes: PHYSICAL EXAMINATION: GENERAL: Well-appearing, well-nourished and in no acute distress. HEAD: Atraumatic, normocephalic. EYES: Pupils equal round and reactive to light, extraocular movements intact, sclera anicteric, conjunctiva are normal. ENT: Nares patent, oropharynx clear without exudates. Moist mucous membranes. NECK: Normal range of motion, supple without lymphadenopathy LUNGS: Breath sounds clear to auscultation bilaterally and equal. No wheezes rales or rhonchi. HEART: Regular rate and rhythm without murmurs ABDOMEN: Soft, nontender, nondistended abdomen. No guarding, no rebound. No masses appreciated. Musculoskeletal: Normal range of motion, no pitting or edema. No cyanosis. NEUROLOGICAL: Cranial nerves grossly intact. Normal speech, normal gait. Normal sensory, motor exams PSYCH: Normal mood, normal affect. SKIN: Warm, Dry, normal turgor, no rashes or lesions noted. Course - Re-evaluation Re-evalutation: Patient appears well, nontoxic, vital signs within normal limits. Accu-Chek was taken in triage on our machine as well as patient's home machine. There appears to be a 70 point difference in the machines with the home machine reading higher. This was verified by serum glucose. Patient is asymptomatic, alert, oriented, states he feels well. No evidence of diabetic ketoacidosis on labs. 07/09/19 15:03 Laboratory studies today were unremarkable. Urinalysis pending. I will call the daughter, Sharmila Gonzales at [phone] with the results. Unlikely that there is an underlying UTI. - Vital Signs Vital signs: Temp Pulse Resp BP Pulse Ox 98 F 75 16 171/65 H 100 07/09/19 15:08 07/09/19 13:36 07/09/19 15:08 07/09/19 15:08 07/09/19 15:08 - Laboratory Result Diagrams: 07/09/19 14:00 07/09/19 14:00 Laboratory results interpreted by me: 07/09/19 07/09/19 07/09/19 13:44 14:00 14:00 RDW 14.2 H Sodium 136.0 L Chloride 97 L BUN 25 H Glucose 221 H POC Glucose 229 H Urine Glucose (UA) Urine Blood 07/09/19 15:04 RDW Sodium Chloride BUN Glucose POC Glucose Urine Glucose (UA) >=500 H Urine Blood MODERATE H Discharge - Discharge Clinical Impression: Blood glucose elevated Condition: Stable Disposition: HOME, SELF-CARE Additional Instructions: You are seen in the emergency department today with concerns for possible elevated blood sugar. The blood sugars taken here were in the 220 range. I believe that your home glucometer may be off by about 60-70 points. I will call you with his urinalysis result in about 1 hour. If there is any abnormality I will call in a prescription for the antibiotic. Please continue taking any and all home medications. Keep any and all follow-up appointments with his primary care provider. Referrals: VIRGINIA DIGGS MD [Primary Care Provider] - Follow up as needed
[2019-07-09 15:15] LABS: ABSOLUTE LYMPHOCYTES# (MANUAL) 1.4 10^3/uL (0.5-4.7); ABSOLUTE MONOCYTES # (MANUAL) 0.5 10^3/uL (0.1-1.4); BASOPHILS % (MANUAL) 0 % (0-2); EOSINOPHILS % (MANUAL) 2 % (0-6); LYMPHOCYTES % (MANUAL) 16 % (13-45); MONOCYTES % (MANUAL) 6 % (3-13); SEGMENTED NEUTROPHILS % (MAN) 76 % (42-78); TOTAL CELLS COUNTED 100
[2019-07-09 15:16] LABS: ANISOCYTOSIS SLIGHT; PLATELET COMMENT ADEQUATE
[2019-07-09 15:18] LABS: APPEARANCE,URINE CLEAR; BILIRUBIN,URINE NEGATIVE (NEGATIVE); COLOR,URINE STRAW; GLUCOSE, URINE >=500 mg/dL (NEGATIVE); KETONES,URINE NEGATIVE (NEGATIVE); PROTEIN,URINE NEGATIVE (NEGATIVE); URINE SPECIFIC GRAVITY 1.002; UROBILINOGEN,URINE NEGATIVE mg/dL (<2.0)
[2019-07-09 15:34] VITALS: BP 171/65
== END 2019-07-09 15:34 | disposition home or self-care (01) ==
LOC: ER 13:24
DX: E11.9 Type 2 diabetes mellitus without complications (principal); F03.90 Unspecified dementia, unspecified severity, without behavioral disturbance, psychotic disturbance, mood disturbance, and anxiety
CPT/HCPCS: 99284; 96360; 36415; 82962; 85025; 80053; 81001; 82803; J7030